=== PATIENT | female | born 1950 | race Caucasian/White ===

== ENCOUNTER 2017-06-21 11:24 | Emergency (ER) | payer MEDICARE, OTHER ==
[2017-06-21 12:08] LABS: APPEARANCE HAZY (CLEAR); BILIRUBIN NEGATIVE (NEGATIVE); COLOR YELLOW (YELLOW); GLUCOSE NEGATIVE (NEGATIVE); KETONE NEGATIVE (NEGATIVE); NITRITE NEGATIVE (NEGATIVE); PROTEIN 1+ mg/dL (NEGATIVE); SPECIFIC GRAVITY 1.015 (1.005-1.020); UROBILINOGEN NORMAL (NORMAL)
[2017-06-21 12:10] LABS: LEUKOCYTE ESTERASE 1+ (NEGATIVE)
[2017-06-21 12:11] LABS: BACTERIA FEW /hpf (NONE SEEN); EPITHELIAL CELLS 0-5 /hpf (0-5); MUCUS <1+ /lpf (NONE SEEN); RED CELLS - URINE 0-5 /hpf (0-5)
[2017-06-21 13:38] LABS: BASOPHILS 0.6 % (0-2); EOSINOPHILS 2.3 % (0-7); HEMATOCRIT 40.5 % (36.0-48.0); HEMOGLOBIN 13.2 g/dL (12-16); IMMATURE GRANULOCYTES 0.2 % (0-5); LYMPHOCYTES 34.8 % (15-50); MCH 28.3 pg (26.0-34.0); MCHC 32.6 g/dL (31.0-37.0); MCV 86.9 fL (80.0-100.0); MEAN PLATELET VOLUME 10.3 fL (7.4-10.4); MONOCYTES 7.7 % (2-11); NEUTROPHILS 54.4 % (40-80); PLATELET COUNT 214 10x3/uL (130-400); RBC 4.66 10x6/uL (4.00-5.40); RDW 13.7 % (11.5-14.5); WBC 6.6 10x3/uL (4.8-10.8)
[2017-06-21 13:56] LABS: ALBUMIN 3.5 g/dL (3.4-5.0); ANION GAP 2.3 mmol/L (8-16); BILIRUBIN - TOTAL 0.38 mg/dL (0.2-1.3); CALCIUM 8.9 mg/dL (8.5-10.1); POTASSIUM - SERUM 3.3 mmol/L (3.5-5.1); PROTEIN - SERUM 6.7 g/dL (6.4-8.2)
[2017-06-23 14:22] VITALS: BMI 25.6
== END 2017-06-21 16:40 | disposition home or self-care (01) ==
LOC: D.ER 11:24
PROVIDERS: Emergency Medicine; Nurse Practitioner Family
DX: N20.1 Calculus of ureter (principal); R10.9 Unspecified abdominal pain; E03.9 Hypothyroidism, unspecified; K21.9 Gastro-esophageal reflux disease without esophagitis; R11.0 Nausea

== ENCOUNTER 2017-06-23 13:26 | Day surgery (SDC) | payer MEDICARE, OTHER ==
[~2017-06-23] VITALS: Ht 157.5 cm; Wt 63.5 kg
[2017-06-23] MEDS ORDERED: SYNTHROID25 MCG PO (14:09)
[2017-06-23] MEDS ORDERED: PRILOSEC10 M1 PO (14:10)
[2017-06-23] MEDS ORDERED: HYDROCODONE-IB1 EAC3 PO (14:11)
[2017-06-23 14:22] VITALS: BP 130/58; Ht 157.5 cm; Wt 63.5 kg
[2017-06-23 20:26] VITALS: BP 156/68
--- NOTE | 2017-06-23 20:45 | NUR ---
RECEIVED PT AWAKE, ALERT, ORIENTED @ 20:25 VIA BED. PT DENIES ANY NEED, PAIN, SOB, OR ANY OTHER DIFFICULTIES AT THIS TIME. PT CAN BE D/C @ 21:30 PER THE 1 HOUR WAKE UP POST OP ORDER FROM DR. FRANKEL. TURKEY SANDWICH AND CRANBERRY JUICE GIVEN TO PT. CONTINUE TO MONITOR CLOSELY. BED LOW, CALL LIGHT IN REACH, SIDE RAILS X 2, HOB 30 DEGREES.
--- NOTE | 2017-06-23 22:10 | NUR ---
V/S REMAINED STABLE, PT UP X 2 TO BATHROOM WITH MINIMAL TO NO ASSIST. PTS RIDE IS HERE, PT DENIES ANY NEEDS, ANY DIFFICULTIES OR CHANGES IN STATUS. HANDWRITTEN RX FOR NORCO GIVEN TO PT WITH INSTRUCTIONS TO CALL DR. FRANKEL FOR FOLLOW UP APPOINTMENT. PT STATES HER D/C PAPERWORK DID NOT FOLLOW HER FROM PACU TO HER ROOM ON THIS UNIT. I REVIEWED S/S TO LOOK FOR, CHANGES TO BE AWARE OF, AND THE S/S THAT NEED TO BE REPORTED IMMEDIATELY POST OP. PT HAS BEEN INSTRUCTED TO RETURN TO ER WITH INCREASED BLEEDING, S/S OF INFECTION, FEVER, ABDOMINAL PAIN, AND ANY OTHER CHANGES TO STATUS. PT HAS BEEN INSTRUCTED NOT TO LIFT ANYTHING HEAVY, AND NOT TO BEND OVER UNTIL FOLLOW WITH DR. FRANKEL. PT VERBALLY AGREED THAT SHE UNDERSTANDS THESE INSTRUCTIONS. IV WAS D/C FROM RT FOREARM WITH CATH TIP INTACT. PT WAS TAKEN VIA WHEELCHAIR BY FRIENDS.
--- NOTE | 2017-06-24 10:08 | OP ---
PATIENT NAME: RHYS ARZATE MEDICAL RECORD: [id number] :50 LOCATION:[facility] ADMISSION DATE: SURGEON: LAITH FRANKEL MD DATE OF OPERATION: 06/23/2017 SURGEON: Laith Frankel MD ANESTHESIA: TIVA by Noah Ross CRNA. PREOPERATIVE DIAGNOSIS: Right proximal ureteral stone, 6 mm. POSTOPERATIVE DIAGNOSIS: Right proximal ureteral stone, 6 mm. FINDINGS: Radiodense proximal ureteral stone. Single ureteral orifices in the bladder. No bladder tumors. PROCEDURES: Cystoscopy, right ureteroscopy and stone extraction, right ureteral stent insertion 6-Mexican x 24 cm with string attached. SPECIMENS: Right ureteral stone. ESTIMATED BLOOD LOSS: None. COMPLICATIONS: None. CLINICAL HISTORY: This is a 66-year-old female, who was moving here from [place]. She had 4 days of right-sided abdominal pain with nausea and vomiting. She went to the Emergency Room and a CT scan showed a right proximal ureteral stone causing hydroureteronephrosis. She was seen in the office today and she still continued to have pain. We are going to remove the stone with right ureteroscopy. She does not have any allergies to medication. We gave her ancef 2 grams IV pediatric surgeon to the OR. DESCRIPTION OF PROCEDURE: The patient was given IV sedation. She was placed in the dorsal lithotomy position and prepped and draped. A 21-Mexican cystoscope with 30-degree lens was used for visualization. Cystoscopic findings are as outlined above. Fluoroscopy revealed the stone to be in the proximal ureter as a radiodensity. We entered into the right ureteral orifice with a Sensor wire. The wire went up to the level of the stone and had difficulty getting past it. However, after several attempts, the wire finally managed to slip past the stone proximally into the renal pelvis. We then placed the balloon dilator over the guidewire. The 4 cm long by 21-Mexican circumference balloon was placed into the right ureteral orifice. The ureteral orifice was dilated with 18 atmospheres of pressure for a few seconds. The balloon was then deflated and entirely removed. We then removed the cystoscope, leaving the wire in place. The rigid ureteroscope was placed beside the wire. We found the stone in the proximal ureter. A 0-tip 4 wire basket was placed around the stone and entrapped it. As we were pulling out the stone, the stone broke into 2 fragments. The larger fragment was left in the ureter. We removed the smaller fragment and then placed the ureteroscope back up the ureter and retrieve the larger fragment. Both these fragments were sent to pathology for stone analysis. The ureteroscope was then removed and the wire was backloaded onto the cystoscope. Over the wire, we inserted the 6-Mexican x 24 cm ureteral stent. Once the stent was in correct position, we entirely withdrew the wire. The stent was seen to coil proximally and distally. The distal end was pushed into the bladder using OPERATIVE REPORT [id number] RHYS ARZATE pusher. The string on the distal end of the stent is maintained. We drained the bladder through the cystoscope and then removed the scope. The string was taped to the suprapubic area with a piece of Tegaderm. The patient will be discharged home tonight. She is going back to [place] for her wedding. She will come back and see me in about a week's time to have the stent removed by pulling on the string. TRANSINT:[id number] Voice Confirmation ID: [id number] DOCUMENT ID: [id number] LAITH FRANKEL MD at 1008 CC: [id number] DICTATION DATE: 06/23/172003 FIELD MACHINIST: 06/23/17 2323 [facility] 06/23/17 [place] [id number] [place] [address]
== END 2017-06-23 22:05 | disposition home or self-care (01) ==
LOC: D.OPS 13:26 → D.M2 20:24 → D.OPS 22:05
PROVIDERS: Urology
DX: N13.2 Hydronephrosis with renal and ureteral calculous obstruction (principal); Z01.812 Encounter for preprocedural laboratory examination

== ENCOUNTER → 2018-04-20 09:57 | Outpatient (CLI) | payer MEDICARE, OTHER ==
[2017-06-23 14:22] VITALS: BMI 25.6
[~2018-04-20 09:57] MED LIST: BAYER CHEWABLE81 MG PO; HYDROCODONE-IB1 EAC3 PO; PLAVIX75 MG PO; PRILOSEC10 M1 PO; PROZAC10 MG; SYNTHROID25 MCG PO
== END | disposition home or self-care (01) ==
LOC: D.CT 09:57
DX: R05 Cough (principal)

== ENCOUNTER → 2018-06-08 07:49 | Outpatient (CLI) | payer MEDICARE, OTHER ==
[~2018-06-08] VITALS: Ht 152.4 cm; Wt 66.8 kg
--- NOTE | ~2018-06-08 | HP ---
PATIENT: RHYS ARZATE MEDICAL RECORD: [id number] ACCOUNT: [id number] LOCATION:[facility] : 50 ADMISSION DATE: 06/08/18 HISTORY AND PHYSICAL EXAMINATION DIAGNOSES: 1. Angina. 2. Abnormal nuclear stress test, anterior ischemia. HISTORY OF PRESENT ILLNESS: This is a woman who has no previous history of ischemic heart disease, began having chest pain, chest discomfort compatible with angina as well as shortness of breath. She underwent risk stratification with nuclear stress testing revealing anterior ischemia, now brought for cardiac catheterization. PHYSICAL EXAMINATION: GENERAL APPEARANCE: Well nourished, well developed, appears stated age. Level of distress, comfortable. PSYCHIATRIC: Mental status, alert, normal affect. Orientation, oriented to time, place and person. EYES: Lids and conjunctivae, noninjected. No discharge, no pallor. ENT: Lips, teeth, gums, normal dentition. Oropharynx, no cyanosis, no pallor. NECK: Carotid arteries, bilateral normal upstroke, no bruits, no thrills. JUGULAR VEINS: No jugular venous pressure or distention. CERVICAL LYMPH NODES: Nontender, nonenlarged. THYROID: Not enlarged. Nontender. No nodules. LUNGS: Respiratory effort, unlabored. CHEST: Normal curvature. No thoracic deformity. No chest wall tenderness. Percussion, resonant. Auscultation, clear. No wheezes, no rales, no rhonchi. CARDIOVASCULAR: Precordial exam, nondisplaced. No heaves or pericardial thrills. Rate and rhythm, regular. Heart sounds, normal S1, normal S2. No S3, no gallop, no rub. Systolic murmur, not heard. Diastolic murmur, not heard. EXTREMITIES: No cyanosis, no edema. Peripheral pulses, full and equal in all extremities, except as noted. No bruits appreciated. ABDOMEN: Soft, nondistended. Normal aorta. No bruit. Nontender. No masses. Liver, nontender, no hepatomegaly. Spleen, nontender, no splenomegaly. MUSCULOSKELETAL: No joint tenderness. No joint swelling. No erythema. NEUROLOGICAL: Normal gait, normal strength, normal tone. SKIN: Warm and dry. OVERALL IMPRESSION: Anginal symptomatology with abnormal nuclear stress test. We will proceed with coronary angiography. Further care depends upon findings of the angiography. TRANSINT:[id number] Voice Confirmation ID: [id number] DOCUMENT ID: [id number] HISTORY AND PHYSICAL [id number] RHYS ARZATE JEFFREY MD at 1208 CC: [id number] DICTATION DATE: 06/08/18939 FORMING MACHINE OPERATOR: 06/08/18 0956 DEP CLI 06/08/18 [place] [id number] [place] [id number]
--- NOTE | ~2018-06-08 | OP ---
PATIENT NAME: RHYS ARZATE MEDICAL RECORD: [id number] :50 LOCATION:[facility] ADMISSION DATE: SURGEON: NIRAJ DA SILVA MD DATE OF OPERATION: 06/08/2018 PROCEDURES: 1. PTCA stent RCA. 2. Intravascular ultrasound. 3. Left heart catheterization. 4. Selective coronary angiography. 5. Left ventriculogram. INDICATION: Chest pain compatible with angina. PROCEDURE IN DETAIL: After informed consent was obtained and after a detailed description of the risks, benefits as well as alternative therapies, the patient elected to proceed with angiogram and angioplasty. The right femoral area was prepped and draped in normal sterile fashion. Right femoral artery was cannulated via modified Seldinger technique with placement of 6-Cymraes sheath. All catheters exchanged through this sheath. FINDINGS: Left ventriculogram was performed in a standard 30-degree BLACKWELL view, reveals preserved cardiac wall motion, ejection fraction 50% to 55%. SELECTIVE CORONARY ANGIOGRAPHY: 1. Left main has no significant angiographic disease. 2. Left anterior descending has moderate irregularities, but no flow-limiting stenosis. 3. The left circumflex has moderate irregularities, but no flow-limiting stenosis. 4. Right coronary artery has 2 areas of 75% to 80% stenosis confirmed by intravascular ultrasound. BUS ESCORT STENT OF THE RCA: The stent used was a 3.5 x 38 mm Chapman Jocy. Result was 0% residual stenosis. OVERALL IMPRESSION: Successful percutaneous transluminal coronary angioplasty stent of the right coronary artery going from 75% to 80% initial stenosis to 0% residual. TRANSINT:[id number] Voice Confirmation ID: [id number] DOCUMENT ID: [id number] NIRAJ DA SILVA MD at 1208 CC: [id number] DICTATION DATE: 06/08/18 1044 ORE DRYER: 06/08/18 1303 DEP CLI 06/08/18 [place] [address]
--- NOTE | ~2018-06-08 | HEMODYNAMI ---
PATIENT:RHYS ARZATE MEDICAL RECORD: [id number] : 50 LOCATION:[facility] ADMISSION DATE: 06/08/18 Generatedon:06/08/201810:46 Patient name: RHYS ARZATE Patient #: [id number] SSN: DO B: 1950 Date of study: 06/08/2018 Page: Of Hemodynamic Procedure Report Patient Data Patient Demographics Procedure consent was obtained First Name: RHYS Gender: Female Last Name: HUEY : 1950 [facility] Initial: B Age: 67 year(s) Patient #: [id number] Race: Unknown Additional ID: [id number] Contact details [address]: [address] [place] [address] State: [place] City: [place] Zip code: [address] Past Medical History Allergies: No known allergies Admission Admission Data Admission Date: 06/08/2018 Admission Time: 7:49 Height (in.): 59.84 BSA: 1.64 (m2) Height (cm.): 152 BMI: 28.91 (kg/m2) Weight (lbs.): 147.27 Weight (kg.): 66.8 Lab Results Lab Result Date: 06/08/2018 Lab Result Time: 0:00 Biochemistry Name Units Result Min Max BUN mg/dl 14 --(--*-)-- 7 18 Creatinine mg/dl 1 --(--*-)-- 0.6 1.3 CBC Name Units Result Min Max Hemoglobin g/dl 13.3 -*(----)-- 13.5 17.5 Procedure Procedure Types Cath Procedure Diagnostic Procedure C [facility] w/Coronaries FFR/IVUS Intra-Coronary IVUS Initial PCI Procedure Coronary Stent Coronary Stent Initial Procedure Description Procedure Date Procedure Date: 06/08/2018 Procedure Start Time: 10:25 Procedure End Time: 10:46 Procedure Staff Name Function Nikolas Chen MD Performing Physician Debbie Wiggins RT Monitor Nick Reyes RN Nurse An Ortiz RT Scrub Procedure Data Cath Procedure Fluoroscopy Diagnostic fluoroscopy Total fluoroscopy Time: 4.1 time: 4.1 min min Diagnostic fluoroscopy Total fluoroscopy dose: 642 dose: 642 mGy mGy Contrast Material Contrast Material Type Amount (ml) Isovue 300 120 Entry Location Entry Primary Successful Side Size Upsize Upsize Entry Closure Succes sful Closure Location (Fr) 1 (Fr) 2 (Fr) Remarks Device Remarks Femoral Right 5 Fr 6 Fr Exoseal artery Short Estimated blood loss: 10 ml Diagnostic catheters Device Type Used For End Catheter Placement MULTIPACK Pigtail 5 Fr Procedure catheter MULTIPACK JL 4.0 5Fr Procedure catheter MULTIPACK 3DRC 5Fr Procedure catheter Procedure Complications No complications Procedure Medications Medication Administration Route Dosage Oxygen etCO2 Nasal cannula 2 l/min Heparin Flush Bag added to field 2 bags (1000units/500ml NS) 0.9% NaCl I.V. 100 ml/hr Fentanyl I.V. 50 mcg Versed I.V. 1 mg Fentanyl I.V. 50 mcg Versed I.V. 1 mg Heparin Bolus I.V. 4000 units Integrilin (Bolus I.V. 6.2 ml 2mg/ml) Integrilin (Bolus wasted 3.8 ml 2mg/ml) Nitroglycerin IC/IA I.C. 200 mcg Plavix P.O. 600 mg Hemodynamics Rest BSA: 1.64 (m2) HGB: 13.3 (g/dl) O2 Consumption: Estimated: 143.13 (ml/min) O2 Co nsumption indexed: Estimated:87.27 (ml/min/m) Heart Rate: 55 (bpm) Pressure Samples Time Site Value (mmHg) Purpose Heart Use Rate(bpm) 10:26 LV /23,16 Snapshot 57 Snapshots Pre Cath Intra NCS Post Cath Vital Signs Time Heart Resp SPO2 etCO2 NIBP Rhythm Pain Sedation Rate (ipm) (%) (mmHg) (mmHg) Status Level (bpm) 10:11:10 58 17 99 19.5 157/74(99) NSR 0 (11) 10(A) , No pain 10:15:32 57 17 98 33.8 150/74(93) NSR 0 (11) 10(A) , No pain 10:19:53 59 16 93 33.7 137/65(93) NSR 0 (11) 10(A) , No pain 10:24:11 58 17 95 13.5 101/60(80) NSR 0 (11) 9(A) , No pain 10:29:12 58 16 97 0 128/70(84) NSR 0 (11) 9(A) , No pain 10:33:23 64 17 97 31.5 130/67(89) NSR 0 (11) 9(A) , No pain 10:37:35 67 16 97 34.5 126/68(88) NSR 0 (11) 9(A) , No pain 10:41:48 75 16 94 20.2 118/63(87) NSR 0 (11) 9(A) , No pain 10:45:57 71 17 96 31.5 117/63(81) NSR 0 (11) 9(A) , No pain Medications Time Medication Route Dose Verified Delivered Reason Notes Effectiveness by by 10:12:21 Oxygen etCO2 2 Nikolas Romero Per physician Nasal l/min April Reyes RN cannula 10:12:28 Heparin Flush added 2 Nikolas Romero used for Bag to bags April Reyes RN procedure (1000units/500ml field NS) 10:12:37 0.9% NaCl I.V. 100 Nikolas Romero Per physician ml/hr April Reyes RN 10:18:39 Fentanyl I.V. 50 Nikolas Romero for sedation mcg April Reyes RN 10:18:44 Versed I.V. 1 mg Nikolas Romero for sedation April Reyes RN 10:21:48 Fentanyl I.V. 50 Nikolas Romero for sedation mcg April Reyes RN 10:21:52 Versed I.V. 1 mg Nikolas Romero for sedation April Reyes RN 10:34:49 Heparin Bolus I.V. 4000 Nikolas Romero for units April Reyes RN anticoagulation 10:35:02 Integrilin I.V. 6.2 Nikolas Romero for (Bolus 2mg/ml) ml April Reyes RN antiplatelet therapy 10:35:09 Integrilin wasted 3.8 Nikolas Romero for (Bolus 2mg/ml) ml April Reyes RN antiplatelet therapy 10:38:36 Nitroglycerin I.C. 200 Nikolas Connor for IC/IA mcg April Chen MD vasodilation 10:43:41 Plavix P.O. 600 Nikolas Romero for mg April Reyes RN antiplatelet therapy Procedure Log Time Note 9:51:38 Diagnostic Cath status Elective 10:04:09 Patient Height : 59.84 inches 10:04:14 Patient Weight : 147.27 lbs 10:04:46 Lab Result : BUN 14 mg/dl 10::46 Lab Result : Hemoglobin 13.3 g/dl 10:04:46 Lab Result : Creatinine 1 mg/dl 10:05:41 Nick Reyes RN sent for patient. Start room use. 10:05:43 Time tracking: Regular hours (M-F 7:00 - 5:00) 10:05:50 Plan of Care:Hemodynamics will remain stable., Cardiac rhythm will remain stable., Comfort level will be maintained., Respiratory function will remain adequate., Patient/ family verbilizes understanding of procedure., Procedure tolerated without complication., Recovers from procedure without complications.. 10:06:02 Patient received from Pre/Post Procedure Room to [facility] 2 Alert and oriented. Tansferred to table in Supine position. 10:06:04 Warm blankets applied, and josefa hugger turned on for patient comfort. 10:06:06 Correct patient and procedure confirmed by team. 10:09:52 Signed procedure consent form obtained from patient. 10:09:54 ECG and BP/O2 sat monitors applied to patient. 10:09:56 Vital chart was started 10:12:13 Baseline sample Acquired. 10:12:17 Rhythm: sinus rhythm 10:12:20 Full Disclosure recording started 10:12:21 Oxygen 2 l/min etCO2 Nasal cannula was administered by Nick Reyes RN; Per physician; 10:12:26 H&P Date Dictated: 06/08/2018 Within 30 days and on chart.. 10:12:28 Heparin Flush Bag (1000units/500ml NS) 2 bags added to field was administered by Nick Reyes RN; used for procedure; 10:12:28 Pre-procedure instructions explained to patient. 10:12:30 Family in waiting room. 10:12:31 Patient NPO since Midnight. 10:12:37 0.9% NaCl 100 ml/hr I.V. was administered by Nick Reyes RN; Per physician; 10:12:37 Patient allergic to No known allergies 10:12:41 Is the patient allergic to Iodine/contrast media? No. 10:12:43 Was the patient premedicated? Yes 10:12:45 Is patient on blood thinner?No 10:12:48 Patient diabetic? No. 10:12:54 Previous problem with sedation/anesthesia? No ? 10:12:57 Snore? No 10:12:59 Sleep apnea? No 10:13:00 Deviated septum? No 10:13:05 Dentures? No ? 10:13:08 Patient pain scale 0/10 ?. 10:13:15 IV patent on arrival in left forearm with 0.9% NaCl at [facility]. 10:13:20 Lab results completed and on chart. 10:13:24 Right groin area was prepped with chlora-prep and draped in sterile fashion 10:13:26 Alarms reviewed by R. N. 10:13:26 Sharps counted by scrub and verified by R.N. 10:13:27 Physician paged 10:13:28 Physician arrived 10:13:29 --------ALL STOP TIME OUT------ 10:13:29 Final Timeout: patient, procedure, and site verified with staff and physician. All members of the team are in agreement. 10:13:33 Right groin site verified by team. 10:13:36 Physical assessment completed. ASA score P 2 - A patient with mild systemic disease as per Nikolas Chen MD. 10:13:40 Sedation plan: IV Moderate Sedation Medication:Versed, Fentanyl 10:17:06 Use device set Femoral Dx 10:17:07 ACIST Syringe (42186) opened to sterile field. 10:17:08 Bag Decanter () opened to sterile field. 10:17:08 Medline Cath Pack ([id number]) opened to sterile field. 10:17:09 DIAGNOSTIC WIRE .035 260cm J wire (043828) opened to sterile field. 10:17:10 ACIST Hand Control (91351) opened to sterile field. 10:17:10 ACIST Manifold (94628) opened to sterile field. 10:17:11 DIAGNOSTIC Multipack 5Fr catheter set (OW4444) opened to sterile field. 10:17:14 Tegaderm 4 x 4 (1626W) opened to sterile field. 10:17:14 PERCUTANEOUS ENTRY 19GA needle opened to sterile field. 10:17:17 SHEATH Prelude 5Fr 0.035 ([id number]-8C-04-035) opened to sterile field. 10:18:39 Fentanyl 50 mcg I.V. was administered by Nick Reyes RN; for sedation; 10:18:44 Versed 1 mg I.V. was administered by Nick Reyes RN; for sedation; 10:20:32 Zero performed for pressure channel P1 10:21:48 Fentanyl 50 mcg I.V. was administered by Nick Reyes RN; for sedation; 10:21:52 Versed 1 mg I.V. was administered by Nick Reyes RN; for sedation; 10:25:19 Procedure started. 10:25:28 Local anesthetic to right femoral artery with Lidocaine 2% by Nikolas Chen MD.INITIAL ACCESS ONLY 10:25:40 A 5 Fr sheath was inserted into the Right Femoral artery 10:26:32 A MULTIPACK Pigtail 5 Fr catheter was advanced over the wire and used for Procedure. 10:26:37 LV angiography performed. 10:26:51 Catheter removed. 10:26:57 EF : 50 % 10:27:07 A MULTIPACK JL 4.0 5Fr catheter was advanced over the wire and used for Procedure. 10:27:31 LCA angiography performed. 10:27:38 Catheter removed. 10:28:20 A MULTIPACK 3DRC 5Fr catheter was advanced over the wire and used for Procedure. 10:28:24 RCA angiography performed. 10:29:29 Catheter removed. 10:30:01 IVUS catheter advanced over wire. 10:30:12 Sheath upsized to a 6 Fr Short. 10:31:02 CHOICE PT Extra Support 182cm wire ([id number]) opened to sterile field. 10:31:02 SHEATH 6Fr Prelude ([id number]) opened to sterile field. 10:31:03 INFLATOR Merit BasixCompak (IH7008) opened to sterile field. 10:31:03 GUIDE 6FR 3DRC catheter (CB82YNP) opened to sterile field. 10:31:16 6 Fr 3DRC guide catheter was inserted over the wire 10:31:23 choice pt ex wire advanced. 10:32:05 Wire advanced across lesion. 10:32:07 IVUS catheter advanced over wire. 10:34:34 IVUS catheter removed over wire. 10:34:49 Heparin Bolus 4000 units I.V. was administered by Nick Reyes RN; for anticoagulation; 10:35:02 Integrilin (Bolus 2mg/ml) 6.2 ml I.V. was administered by Nick Reyes RN; for antiplatelet therapy; 10:35:09 Integrilin (Bolus 2mg/ml) 3.8 ml wasted was administered by Nick Reyes RN; for antiplatelet therapy; 10:35:52 Place stent Inflation Number: 1 A SHINE RX 3.5 x 38 stent ([id number]) was prepped and advanced across the Mid RCA. The stent was deployed at 11 VISHAL for 0:08 (min:sec). 10:37:24 Wire removed. 10:37:56 Inflation number: 2 The stent balloon was then re-inflated across the Mid RCA to 15 VISHAL for 0:06 (min:sec). 10:38:36 Nitroglycerin IC/IA 200 mcg I.C. was administered by Nikolas Chen MD; for vasodilation; 10:39:24 Guide catheter removed. 10:39:30 EXOSEAL 6Fr (EX600) opened to sterile field. 10:39:43 Sheath removed intact; hemostasis achieved with Exoseal to the Right Femoral artery. 10:39:46 Procedure ended.(Physican Out) 10:40:58 Fluoroscopy time 04.10 minutes. 10:41:02 Fluoroscopy dose: 642 mGy 10:41:02 Flurop Dose total: 642 10:41:08 Contrast amount:Isovue 300 120ml. 10:41:10 Sharps counted by scrub and verified by R.N. 10:41:12 Insertion/operative site no bleeding no hematoma. 10:41:22 Post-procedure physical assessment completed. ASA score P 2 - A patient with mild systemic disease as per Nikolas Chen MD. 10:41:26 Post procedure rhythm: unchanged. 10:41:31 Estimated blood loss: 10 ml 10:41:34 Post procedure instruction explained to patient.Patient verbalizes understanding. 10:41:57 Procedure type changed to Cath procedure, Diagnostic procedure, LHC, LHC w/Coronaries, FFR/IVUS, Intra-Coronary IVUS Initial, PCI procedure, Coronary Stent, Coronary Stent Initial 10:41:58 Procedure and supply charges have been captured, reviewed, submitted and are correct. 10:42:42 Procedure Complication : No complications 10:43:41 Plavix 600 mg P.O. was administered by Nick Reyes RN; for antiplatelet therapy; 10:45:55 Vital chart was stopped 10:45:58 See physician's report for complete and final results. 10:46:00 Report given to Pre/Post Procedure Room. 10:46:04 Procedure ended. 10:46:04 Full Disclosure recording stopped 10:46:08 End room use (Document Last) 10:46:20 ACC-PCI Only Patient was given prescriptions, or instructed by Nikolas Chen MD to start/continue the following medications upon discharge: Plavix Intervention Summary Intervention Notes Time ActionType Lesion and Equipment Action# Pressure Duration Attributes Used 10:35:52 Place stent Mid RCA SHINE RX 1 11 00:08 3.5 x 38 stent ([id number]) 10:37:56 Reinflate Mid RCA SHINE RX 2 15 00:06 stent 3.5 x 38 balloon stent ([id number]) Device Usage Item Name Manufacture Quantity Catalog Number Hospital Part Current Minimal Lot# / Charge Number Stock Stock Serial# Code ACIST Syringe Acist 1 16114 210972 [id number] [id number] 20 (92304) Medical Systems Inc Bag Decanter Microtek 1 2001S 529463 40633 027848 5 (2001S) Medical Inc. Medline Cath Cardinal 1 [id number] 354985 68339 550014 5 Pack Health ([id number]) DIAGNOSTIC WIRE St Jaguar 1 289872 306720 948819 002222 30 .035 260cm J wire (997105) ACIST Hand Acist 1 55636 335958 979576 509962 5 Control (17172) Medical Systems Inc ACIST Manifold Acist 1 83603 806943 049518 055894 5 (11572) Medical Systems Inc DIAGNOSTIC Cardinal 1 [id number] 134253 69948 444776 30 Multipack 5Fr Health catheter set (UO8209) Tegaderm 4 x 4 3M 1 1626W 609417 990352 545250 5 (1626W) PERCUTANEOUS Cook Medical 1 D35832 606506 994960 5 ENTRY 19GA needle SHEATH Prelude Merit 1 [id number]-2X-15-035 052978 979205 583192 5 5Fr 0.035 Medical ([id number]-[id number]-[id number]) MULTIPACK Cardinal 1 425531 5 Pigtail 5 Fr Health catheter MULTIPACK JL Cardinal 1 053056 5 4.0 5Fr Health catheter MULTIPACK 3DRC Cardinal 1 274824 5 5Fr catheter Health CHOICE PT Extra [place] 1 [id number] 715620 248691 345619 5 Support 182cm Scientific wire ([id number]) SHEATH 6Fr Merit 1 [id number] 641637 446120 231792 5 Prelude Medical ([id number]) INFLATOR Merit Merit 1 TI8289 141523 070546 862985 15 BasixePantry Medical (YN8324) GUIDE 6FR 3DRC Medtronic 1 [id number] 646956 673433 718073 1 catheter ([id number]) SHINE RX 3.5 x Chapman 1 [id number] 252008 1148278 874363 5 [id number] 38 stent Vascular ([id number]) EXOSEAL 6Fr Cardinal 1 EX600 925540 492512 308925 10 (EX600) Health Signature Audit [place] Stage Time Signature Unsigned Intra-Procedure 06/08/2018 Debbie Wiggins 10:46:40 AM RT(R) Signatures Monitor : Debbie Wiggins Signature : RT Date : Time : [place] [id number] [place] [address]
[2018-06-08 09:24] VITALS: BP 134/71; Ht 152.4 cm; Wt 66.8 kg
[2018-06-08 09:26] LABS: BASOPHILS 0.9 % (0-2); HEMATOCRIT 40.5 % (36.0-48.0); HEMOGLOBIN 13.3 g/dL (12-16); IMMATURE GRANULOCYTES 0.2 % (0-5); LYMPHOCYTES 35.5 % (15-50); MCH 28.5 pg (26.0-34.0); MCHC 32.8 g/dL (31.0-37.0); MCV 86.9 fL (80.0-100.0); MEAN PLATELET VOLUME 10.8 fL (7.4-10.4); MONOCYTES 10.4 % (2-11); PLATELET COUNT 147 10x3/uL (130-400); RBC 4.66 10x6/uL (4.00-5.40); RDW 13.2 % (11.5-14.5); WBC 5.5 10x3/uL (4.8-10.8)
[2018-06-08 09:37] LABS: CALCIUM 9.1 mg/dL (8.5-10.1); CARBON DIOXIDE 27.5 mmol/L (21.0-32.0); POTASSIUM - SERUM 4.5 mmol/L (3.5-5.1)
== END | disposition home or self-care (01) ==
LOC: D.CATH 07:49
PROVIDERS: Internal Medicine Interventional Cardiology
DX: I25.119 Atherosclerotic heart disease of native coronary artery with unspecified angina pectoris (principal); Z01.812 Encounter for preprocedural laboratory examination
CPT/HCPCS: 92978; 93458; C9600

== ENCOUNTER → 2018-06-18 08:00 | Outpatient (CLI) | payer MEDICARE, OTHER ==
[2018-06-08 09:24] VITALS: BMI 28.7
== END | disposition home or self-care (01) ==
LOC: D.MAMMO 06-08 15:30
DX: Z12.31 Encounter for screening mammogram for malignant neoplasm of breast (principal); M25.511 Pain in right shoulder

== ENCOUNTER 2018-07-26 19:00 | Outpatient (CLI) | payer MEDICARE, OTHER ==
[2018-06-08 09:24] VITALS: BMI 28.7
== END 2018-07-26 23:59 | disposition home or self-care (01) ==
LOC: D.MAMMO 19:00
DX: R92.8 Other abnormal and inconclusive findings on diagnostic imaging of breast (principal)

== ENCOUNTER → 2018-08-17 08:56 | Outpatient (CLI) | payer MEDICARE, OTHER ==
[2018-06-08 09:24] VITALS: BMI 28.7
== END | disposition home or self-care (01) ==
LOC: D.MRI 08-13 08:00
DX: M54.12 Radiculopathy, cervical region (principal)

== ENCOUNTER 2020-05-15 08:00 | Outpatient (CLI) | payer MEDICARE, OTHER ==
[2018-06-08 09:24] VITALS: BMI 28.7
== END 2020-05-15 14:21 | disposition home or self-care (01) ==
LOC: D.MAMMO 08:00
PROVIDERS: ATTEND Family Medicine
DX: Z12.31 Encounter for screening mammogram for malignant neoplasm of breast (principal)